=== PATIENT | female | born 1975 ===

== ENCOUNTER → 2020-04-19 | Day surgery (SDC) | payer OTHER ==
[~2020-04-19] MED LIST: ATORVASTATIN CA20 MG PO; FORTAMET1000 MG PO; GLIMEPIRIDE4 M1 PO; JANUMET XR 1001 EACH PO; JARDIANCE25 MG PO
== END | disposition home or self-care (01) ==
LOC: LAB 04-13 08:31 → EDSTATUS 04-15 14:04 → CIR.AMB 06:17
PROVIDERS: ATTEND Surgery
DX: C50.112 Malignant neoplasm of central portion of left female breast (principal); N62 Hypertrophy of breast; Z20.828 Contact with and (suspected) exposure to other viral communicable diseases